=== PATIENT | female | born 1970 | race Caucasian/White ===

== ENCOUNTER → 2017-11-28 | Outpatient (CLI) | payer BC ==
--- NOTE | 2017-11-28 12:19 | NM ---
HISTORY: RUQ pain, nausea. Technique: Multiple scintigraphic images of the abdomen were obtained the intravenous administration of 5.4 mCi of technetium labeled Choletec. Following distention of the gallbladder with radiotracer a bottle of Ensure was given. An estimated gallbladder ejection fraction was calculated based on this physiologic response. Findings: Homogeneous uptake of radiotracer is seen throughout the liver. The intrabiliary ductal system is ob served normally. The common hepatic and common bile duct grossly appear unremarkable with normal urbano iary-bowel transit. The gallbladder is observed to fill normally without evidence for acute cholecys titis. After the administration of ensure, however, an abnormally low gallbladder ejection fraction o f 3% (normal > 35%) is observed. Although many etiologies (certain medications, cholangitis, pancreat itis, sepsis, etc.) can account for a low gallbladder ejection fraction, in the outpatient setting, t he most common etiology is chronic cholecystitis. IMPRESSION: 1. Hepatobiliary imaging study demonstrates no evidence for hepatic dysfunction, acute cholecystitis , or biliary leak/biloma formation. 2. Low gallbladder ejection fraction of 3%, most likely reflecting chronic cholecystitis, as discuss ed above. Reported By:
== END ==
LOC: RAD 09:02
PROVIDERS: ATTEND Nurse Practitioner
DX: R10.11 Right upper quadrant pain (principal)
CPT/HCPCS: 78227; A9537